=== PATIENT | male | born 1960 | race Two or more races ===

== ENCOUNTER 2016-06-09 09:02 | Inpatient (IN) ==
[2016-06-09] MEDS ORDERED: SODIUM CHLORIDE 0.9% 1,000 ML IV STA (09:14)
[2016-06-09 09:32] LABS: Basophils % 0.2 % (0.0-0.8); Eosinophils % 0.1 % (0.00-10.9); Hemoglobin 14.6 GM/DL (14.0-18.0); Immature Granulocytes % 0.8 %; Immature Granulocytes Absolute 0.15 #; Lymphocytes # 1.7 10*3/uL (1.4-4.0); Lymphocytes % 8.8 % (21.2-54.2); Mean Corpuscular Hemoglobin 30 PG (27-34); Mean Corpuscular Volume 89.4 FL (87-102); Mean Platelet Volume 10.1 FL (9.6-12.0); Monocytes % 15.2 % (1.7-12.7); Neutrophils # 14.6 10*3/uL (1.4-7.4); Neutrophils % 74.9 % (38.7-73.9); Platelet Count 237 T/CUMM (130-400); Red Blood Count 4.81 MC/CUMM (3.8-5.5); Red Cell Distribution Width 13.3 % (9.3-17.3); White Blood Count 19.5 T/CUMM (4-12)
[2016-06-09 09:36] LABS: Apearance,Urine Slightly Hazy (Clear); Bacteria,Urine Occasional /HPF (Few); Bilirubin,Urine Negative (Negative); Blood, Urine Negative (Negative); Glucose,Urine (UA) >=500 mg/dL (Negative); Hyaline Casts,Urine 4 /LPF (0-3); Ketones,Urine 5 mg/dL (Negative); Mucus,Urine Occasional /LPF (Occasional); Nitrite,Urine Negative (Negative); Protein,Urine 30 MG/DL; RBC,Urine 1 /HPF (0-4); Squamous Epithelial Cell,Urine Occasional /HPF (0-10); Urine Color Amber (Yellow); Urine Specific Gravity 1.024 (1.001-1.035); WBC,Urine 3 /HPF (0-6)
[2016-06-09] MEDS ORDERED: PIPERACILLIN/TAZOBACTAM 3,375 MG VIAL IV ONE (09:59)
[2016-06-09] MEDS ORDERED: PIPERACILLIN/TAZOBACTAM 3,375 MG in SODIUM CHLORIDE 0.9% 100 ML IV STA (09:59)
[2016-06-09] MEDS ORDERED: SODIUM CHLORIDE 0.9% 100 ML IV ONE (10:00)
[2016-06-09 10:10] LABS: Alanine Aminotransferase 58 U/L (16-61); Albumin 3.2 G/DL (3.4-5.0); Alkaline Phosphatase 79 U/L (45-117); Amylase 42 U/L (25-115); Aspartate Amino Transferase 25 U/L (0-37); Blood Urea Nitrogen 19 MG/DL (7-18); Calcium 8.9 MG/DL (8.5-10.1); Glucose 322 MG/DL (74-106); Magnesium 1.6 MG/DL (1.8-2.4); Potassium 3.8 MMOL/L (3.5-5.1); Sodium 136 MMOL/L (136-145); Total Protein 6.6 G/DL (6.4-8.3); Troponin I Only < 0.015 NG/ML (0.00-0.045)
[2016-06-09] MEDS ORDERED: INSULIN REGULAR 100 UNIT/ML SUBCUT STA (10:15)
[2016-06-09] MEDS ORDERED: INSULIN REGULAR 100 UNIT/ML ONE (10:20)
--- NOTE | 2016-06-09 10:22 | Ultrasound Report ---
Abdomen ultrasound complete. Indication: Upper abdominal pain. No previous study. The liver is enlarged with a length of 20.5 cm. There is fatty infiltration of the liver. No focal liver lesions. No intrahepatic biliary ductal dilatation. The common duct measures 4.6 mm. No gallstones are seen. There is borderline gallbladder wall thickening at 4.1 mm. There is a minimal amount of pericholecystic fluid. No pancreatic abnormality is seen. The spleen is normal in size. No ascites is present. The IVC is patent. The abdominal aorta is of normal caliber. The kidneys are normal in size, location, and contour. No hydronephrosis. There is a large cyst at the superior pole of the right kidney. It measures 9 x 12 cm. Impression: 1. Gallbladder wall thickening and minimal pericholecystic fluid. No gallstones are seen. Acalculous cholecystitis cannot be excluded. 2. Enlarged fatty liver. 3. Large right renal cyst The Ultrasound images were captured and stored. PROCEDURE INTERPRETED AT [facility] DEPARTMENT OF RADIOLOGY Final Report Signed by: Dr. Evelyn Queen
--- NOTE | 2016-06-09 10:22 | XRay Report ---
Two-view chest. Indication: Shortness of breath and dizziness. Upper abdominal pain. The heart is normal in size. The pulmonary vasculature is normal. The lung rosado are clear. Degenerative changes are noted at the shoulders. Impression: No acute abnormality. PROCEDURE INTERPRETED AT [facility] DEPARTMENT OF RADIOLOGY Final Report Signed by: Dr. Evelyn Queen
--- NOTE | 2016-06-09 10:23 | XRay Report ---
Two-view abdomen. Indication: Generalized abdominal pain. There is elevation of the right hemidiaphragm. There is enlargement of the liver. The bowel gas pattern is normal. No abnormal calcifications over the renal outlines. Degenerative changes of the spinal column and hips. Impression: Hepatomegaly. PROCEDURE INTERPRETED AT [facility] DEPARTMENT OF RADIOLOGY Final Report Signed by: Dr. Evelyn Queen
--- NOTE | 2016-06-09 10:26 | Emergency Department Note ---
Juan Manuel Dumont Brooke, am scribing for, and in the presence of, Nir Antonio MD 09:18. Marisela Dumont Phillip K, MD, personally performed the services described in this documentation, ascribed by Bree Zambrano in my presence, and it is both accurate and complete . 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 Denies Nausea, vomiting, or diarrhea. Mode of Arrival: Stretcher Limitations: No Limitations Source: Patient, RN Notes Reviewed Time Seen by Provider: 06/09/16 09:13 - History of Present Illness HPI Narrative: Patient is a 55 year old male who presents to the ED with c/o RUQ abdominal pain that started about four days ago. He denies the pain radiating around to his back. Patient says food makes the pain worse. He says he has not been able to eat much or sleep. He denies any nausea, vomiting, diarrhea, or fever. He says his bowel movements have been normal. He says he does still have his gallbladder. He is unsure of any FHx of gallstones. Patient has PMHx of IDDM, HTN, and [place] Palsy. Patient does not smoke but does drink alcohol on occasion. Onset (ago): day(s) (4) Allergies/Adverse Reactions: Allergies Allergy/AdvReac Type Severity Reaction Status Date / Time naproxen [From Naprosyn] Allergy RASH Verified 06/09/16 09:07 Sulfa (Sulfonamide Allergy Unknown/Unable Verified 06/09/16 09:07 Antibiotics) to obtain Home Medications: Home Medications Medication Instructions Recorded Confirmed Type Clopidogrel Bisulfate [Clopidogrel] 75 mg PO QPM 06/09/16 06/09/16 History Gabapentin Cap/Tab [Neurontin 300 mg PO BEDTIME 06/09/16 06/09/16 History Cap/Tab] Insulin Glargine,Hum.rec.anlog 50 units SUBCUT BEDTIME 06/09/16 06/09/16 History [Lantus SoloStar] Losartan/Hydrochlorothiazide 1 tablet PO QAM 06/09/16 06/09/16 History [Losartan-Hctz 100-25 mg Tab] Metformin HCl 1,000 mg PO BID 06/09/16 06/09/16 History Metoprolol Succinate 50 mg PO QAM 06/09/16 06/09/16 History Medical,Surgical,& Family Hx - Medical History Cardio: History of: Hypertension Endocrine: History of: Diabetes Mellitus (IDDM) - Social History Smoking Status: Never smoker Exam Vital Signs: Vital Signs Temperature 97.2 F L 06/09/16 09:14 Pulse Rate 97 H 06/09/16 09:47 Respiratory Rate 16 06/09/16 09:14 Blood Pressure 121/80 06/09/16 09:47 O2 Sat by Pulse Oximetry 98 06/09/16 09:47 - General General appearance: alert, in no apparent distress - Head Head exam: Present: atraumatic, normocephalic - Eye Eye exam: Present: normal appearance, PERRL, EOMI - ENT ENT exam: Present: normal exam - Neck Neck exam: Present: normal inspection - Chest Chest inspection: Present: normal inspection, symmetric chest wall rise - Respiratory Respiratory exam: Present: normal lung sounds bilaterally - Cardiovascular Cardiovascular exam: Present: normal rhythm, tachycardia, normal heart sounds - Abdominal Exam Abdominal exam: Present: soft, tenderness (tenderness to direct palpation to the RUQ), normal bowel sounds. Absent: distention - Extremities Exam Extremities exam: Present: pedal edema (trace bilaterally) - Back Exam Back exam: Present: normal inspection - Neurological Exam Neurological exam: Present: alert, oriented X3 - Psychiatric Psychiatric exam: Present: normal affect, normal mood - Skin Skin exam: Present: warm, dry, intact, normal color Results - Labs CBC & BMP: 06/09/16 09:23 06/09/16 09:23 Lab Results: I have reviewed the patients labs Labs: Laboratory Tests 06/09/16 09:23 WBC 19.5 H Neut % (Auto) 74.9 H Lymph % (Auto) 8.8 L [place] % (Auto) 15.2 H Neut # (Auto) 14.6 H [place] # (Auto) 3.0 H Laboratory Tests 06/09/16 09:23 Urine Urobilinogen 2.0 H Laboratory Tests 06/09/16 09:23 Chloride 96 L Anion Gap 15.8 H BUN 19 H Creatinine 1.40 H Glucose 322 H Magnesium 1.6 L Albumin 3.2 L Albumin/Globulin Ratio 0.9 L - Diagnostic Findings Procedure: Abdominal x-ray: report reviewed by me (Hepatomegaly.), Chest x-ray: report reviewed by me (No acute abnormality.), Ultrasound: report reviewed by me (US abdomen: 1. Gallbladder wall thickening and minimal pericholecystic fluid. No gallstones are seen. Acalculous cholecyststitis mcdonald be excluded. 2. Enlarged fatty liver. 3. Large right renal cyst.) Disposition Clinical Impression: Acalculous cholecystitis Case discussed with: patient Disposition: Still a Patient Additional Instructions: Admit to Dr. Iglesias
[2016-06-09] MEDS ORDERED: HYDROmorphone 2 MG/1 ML VIAL IV PRN (10:52)
[2016-06-09] MEDS ORDERED: GLUCAGON 1 MG VIAL IM PRN (12:07)
[2016-06-09] MEDS ORDERED: DEXTROSE 50% 25 GM/50 ML VIAL IV PRN (12:07)
[2016-06-09] MEDS: INSULIN LISPRO 100 UNIT/ML SUBCUT SCH ×3 (12:15→21:13)
--- NOTE | 2016-06-09 12:54 | General Surg History&Physical ---
Assessment and Plan (1) Acalculous cholecystitis Status: Acute Assessment and plan: Impression: Right upper quadrant abdominal pain Plan: Abdominal x-ray shows an enlarged liver. LFTs are normal. Ultrasound with mild gallbladder wall thickening but no gallstones. We'll check a HIDA scan. Current Visit: Yes History of Present Illness Chief complaint: abdominal pain History of present illness: Mr. Keane is a 55 year old male who presented to the emergency room with right upper quadrant abdominal pain. Patient states the pain has been present for the last 4 days. It's worse after eating. He denies previous episodes. The pain has continued to intensify. He's had no nausea vomiting or change in his bowel habits. 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 He denies any shortness of breath or chest pain. States he has no known cardiac or lung problems. States he has a cyst on his kidney. He denies any history of liver problems. Home Medications Medication Instructions Recorded Confirmed Type Clopidogrel Bisulfate [Clopidogrel] 75 mg PO QPM 06/09/16 06/09/16 History Gabapentin Cap/Tab [Neurontin 300 mg PO BEDTIME 06/09/16 06/09/16 History Cap/Tab] Insulin Glargine,Hum.rec.anlog 50 units SUBCUT BEDTIME 06/09/16 06/09/16 History [Lantus SoloStar] Losartan/Hydrochlorothiazide 1 tablet PO QAM 06/09/16 06/09/16 History [Losartan-Hctz 100-25 mg Tab] Metformin HCl 1,000 mg PO BID 06/09/16 06/09/16 History Metoprolol Succinate 50 mg PO QAM 06/09/16 06/09/16 History Allergies Allergy/AdvReac Type Severity Reaction Status Date / Time naproxen [From Naprosyn] Allergy RASH Verified 06/09/16 09:07 Sulfa (Sulfonamide Allergy Unknown/Unable Verified 06/09/16 09:07 Antibiotics) to obtain Medical,Surgical,& Family Hx - Medical History Cardio: History of: Hypertension Neurology: History of: Cerebral Palsy Endocrine: History of: Diabetes Mellitus (IDDM) (only takes lantus at night.) - Surgical History Cardiac Surgeries: Patient Denies: Cardiac Catheterization Thoracic Surgeries: Patient denies;: Organ Transplant, Lobectomy Neurologic Surgeries: Patient denies: Neurologic Surgery Abdominal Surgeries: Surgical HX of: Abdominal Surgery, Hernia Repair - Social History Smoking Status: Never smoker Frequency of Alcohol Use: Occasionally Type of Drug Use: None Exam - Constitutional Vitals: Period Temp Pulse Resp BP Sys/Hyman Pulse Ox Last 24 Hr 98.1 F 96-97 18-18 108-112/77-90 95-99 General appearance: no acute distress - Head Head exam: Present: normocephalic - Neck Neck exam: Present: normal inspection - Respiratory Respiratory exam: Present: clear to auscultation bilaterally - Cardiovascular Cardiovascular exam: Present: RRR - GI/Abdominal GI/Abdominal exam: Present: soft (very tender in the right upper quadrant. Also with mild to moderate tenderness in the left upper quadrant and epigastric area. No peritoneal signs.) - Back Exam Back exam: Present: normal inspection - Neurological Exam Neurological exam: Present: alert, oriented X3 Speech: Present: normal - Skin Skin exam: Present: normal color 12 point system: reviewed and no additional remarkable complaints except as stated Results - Labs CBC & BMP: 06/09/16 09:23 06/09/16 09:23 Lab Results: I have reviewed the past 24 hour labs - Diagnostic Findings Procedure: Ultrasound: report reviewed by me
--- NOTE | 2016-06-09 13:42 | EKG Report ---
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
--- NOTE | 2016-06-09 14:35 | Nuclear Medicine Report ---
HIDA scan. Indication: Right-sided abdominal pain. Gallbladder wall thickening and pericholecystic fluid on ultrasound, without stones. Following the intravenous administration of 5 mCi technetium 99m Choletec, hepatic excretion is prompt and uniform. Bowel activity can be seen by 10 minutes. Gallbladder activity did not occur, in the 2 hours of the exam. Impression: Findings as described above consistent with cystic duct obstruction and cholecystitis, in the appropriate clinical setting. PROCEDURE INTERPRETED AT [facility] DEPARTMENT OF RADIOLOGY Final Report Signed by: Dr. Evelyn Queen
--- NOTE | 2016-06-09 15:10 | Hospitalist History & Physical ---
History of Present Illness Chief complaint: Abdominal pain History of present illness: Mr. Keane is a 55-year-old [place] Citizen [place] male with history of diabetes, hypertension, Locke's palsy on Plavix Home Medications Medication Instructions Recorded Confirmed Type Clopidogrel Bisulfate [Clopidogrel] 75 mg PO QPM 06/09/16 06/09/16 History Gabapentin Cap/Tab [Neurontin 300 mg PO BEDTIME 06/09/16 06/09/16 History Cap/Tab] Insulin Glargine,Hum.rec.anlog 50 units SUBCUT BEDTIME 06/09/16 06/09/16 History [Lantus SoloStar] Losartan/Hydrochlorothiazide 1 tablet PO QAM 06/09/16 06/09/16 History [Losartan-Hctz 100-25 mg Tab] Metformin HCl 1,000 mg PO BID 06/09/16 06/09/16 History Metoprolol Succinate 50 mg PO QAM 06/09/16 06/09/16 History Allergies Allergy/AdvReac Type Severity Reaction Status Date / Time naproxen [From Naprosyn] Allergy RASH Verified 06/09/16 09:07 Sulfa (Sulfonamide Allergy Unknown/Unable Verified 06/09/16 09:07 Antibiotics) to obtain Medical,Surgical,& Family Hx - Medical History Cardio: History of: Hypertension Neurology: History of: Cerebral Palsy Endocrine: History of: Diabetes Mellitus (IDDM) (only takes lantus at night.) - Surgical History Cardiac Surgeries: Patient Denies: Cardiac Catheterization Thoracic Surgeries: Patient denies;: Organ Transplant, Lobectomy Neurologic Surgeries: Patient denies: Neurologic Surgery Abdominal Surgeries: Surgical HX of: Abdominal Surgery, Hernia Repair - Social History Smoking Status: Never smoker Frequency of Alcohol Use: Occasionally Type of Drug Use: None Exam - Constitutional Vitals: Period Temp Pulse Resp BP Sys/Hyman Pulse Ox Last 24 Hr 98.1 F 96-97 18-18 108-112/77-90 95-99 Results - Labs CBC & BMP: 06/09/16 14:48 06/09/16 09:23
[2016-06-09 15:15] LABS: INR 1.1; Partial Thromboplastin Time 28.5 SECS (0-40)
[2016-06-09] MEDS: LACTATED RINGERS 1,000 ML IV SCH ×2 (15:15→21:14)
[2016-06-09] MEDS: metroNIDAZOLE INJ 500 MG in PREMIX 1 EACH IV SCH ×2 (15:15→21:14)
--- NOTE | 2016-06-09 15:18 | Hospitalist Consult Note ---
Assessment and Plan - Time spent with patient Time spent with patient: Less than 30 minutes (1) Acalculous cholecystitis Status: Acute Assessment and plan: 55-year-old [place] male admitted with cholecystitis with cystic duct obstruction and normal LFTs. Patient can have clear liquid diet today and will be held n.p.o. after midnight tonight for possible laparoscopic cholecystectomy in a.m. by Dr. Orantes. History of Locke's palsy--patient is on Plavix for Locke's palsy. He has no signs of facial droop or weakness. His last dose was taken yesterday. Patient denies having a CVA. Will hold his Plavix and will decide if this even needs to be restarted. Dr. Orantes will decide in the morning if he can undergo surgery or wait until Friday. Hypertension-patient's blood pressures are under control on his current regimen. He takes Hyzaar and metoprolol. These have been restarted. Diabetes-patient's admission blood sugars were over 300. He also has renal glycosuria and ketonuria. Ordered a hemoglobin A1c to see what his average blood sugars have been running. Will have to stop his metformin for this hospital stay and put him on sliding scale insulin. Will continue to monitor his blood sugars especially while he is n.p.o. Neuropathy due to diabetes--patient is on Neurontin for his neuropathy. We will continue this home medicine. Leukocytosis--this is most likely due to his cystic duct obstruction. Patient has been started on Zosyn and Flagyl. Patient is afebrile. This is all been discussed with Dr. Bernardo. Further recommendations to follow. 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 Keane is a 55 year old [place] male with history of diabetes, hypertension, Locke's palsy on Plavix admitted by Dr. Orantes with abdominal pain. He was found to have an acute cholecystitis with common bile duct obstruction with normal LFTs. Hospitalist has been consulted for medical management. Patient states he has been having abdominal pain after eating for 3 -4 days. 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 The pain is not associated with nausea or vomiting. Patient denies headache, dysphasia, shortness of breath, chest pain, diarrhea, or lower extremity edema. Patient states he does take his medicines for hypertension and diabetes. He was placed on Plavix several years ago for Locke's palsy that happened bilaterally a year apart. He denies having a stroke. Patient's white count is elevated at 19.5 and creatinine is 1.4. He is afebrile vital signs stable. Blood sugars are greater than 300 along with renal glycosuria and ketonuria. Patient's abdomen is soft and tender to palpation throughout, upper quadrant greater than lower. CC: Conner Orantes MD - Home Medications and Allergies Home Medications: Home Medications Medication Instructions Recorded Confirmed Type Clopidogrel Bisulfate [Clopidogrel] 75 mg PO QPM 06/09/16 06/09/16 History Gabapentin Cap/Tab [Neurontin 300 mg PO BEDTIME 06/09/16 06/09/16 History Cap/Tab] Insulin Glargine,Hum.rec.anlog 50 units SUBCUT BEDTIME 06/09/16 06/09/16 History [Lantus SoloStar] Losartan/Hydrochlorothiazide 1 tablet PO QAM 06/09/16 06/09/16 History [Losartan-Hctz 100-25 mg Tab] Metformin HCl 1,000 mg PO BID 06/09/16 06/09/16 History Metoprolol Succinate 50 mg PO QAM 06/09/16 06/09/16 History Allergies/Adverse Reactions: Allergies Allergy/AdvReac Type Severity Reaction Status Date / Time naproxen [From Naprosyn] Allergy RASH Verified 06/09/16 09:07 Sulfa (Sulfonamide Allergy Unknown/Unable Verified 06/09/16 09:07 Antibiotics) to obtain Medical,Surgical,& Family Hx - Medical History Cardio: History of: Hypertension Neurology: No history of: Cerebral Palsy Endocrine: History of: Diabetes Mellitus (IDDM) (only takes lantus at night.) - Surgical History Cardiac Surgeries: Patient Denies: Cardiac Catheterization Thoracic Surgeries: Patient denies;: Organ Transplant, Lobectomy Neurologic Surgeries: Patient denies: Neurologic Surgery Abdominal Surgeries: Surgical HX of: Abdominal Surgery, Hernia Repair - Family History Family History: Reports;: Family Diabetes, Family Heart Disease - Social History Smoking Status: Never smoker Frequency of Alcohol Use: Occasionally Type of Drug Use: None Marital Status: Single Functional capacity: independent ambulation Review of systems: Complete 10 system review of systems was obtained and pertinent negatives and positives are in HPI Exam - Constitutional Vitals: Period Temp Pulse Resp BP Sys/Hyman Pulse Ox Last 24 Hr 98.1 F 96-97 18-18 108-112/77-90 95-99 Exam: 55-year-old [place] male, no acute distress, alert and oriented Chest clear bilaterally CV regular rate and rhythm Abdomen protuberant, soft, tender throughout, greater on right upper quadrant and epigastric Extremities with no edema Results - Labs CBC & BMP: 06/09/16 14:48 06/09/16 09:23 Lab Results: I have reviewed the past 24 hour labs Labs: Coags and hemoglobin A1c are pending - EKG EKG shows: tachycardia, sinus rhythm - Diagnostic Findings Procedure: Abdominal x-ray: report reviewed by me (Hepatomegaly), Chest x-ray: report reviewed by me (No acute abnormality), Ultrasound: report reviewed by me (Gallbladder wall thickening and minimal pericholecystic fluid. No gallstones, enlarged fatty liver, large right renal cyst)
[2016-06-09] MEDS: PIPERACILLIN/TAZOBACTAM 3,375 MG in SODIUM CHLORIDE 0.9% 100 ML IV SCH ×2 (16:36→21:15)
[2016-06-09] MEDS ORDERED: INSULIN GLARGINE 100 UNIT/ML SUBCUT SCH (21:00)
[2016-06-09] MEDS: INSULIN GLARGINE 100 UNIT/ML SUBCUT SCH (21:12)
[2016-06-09] MEDS: GABAPENTIN 300 MG CAPSULE PO SCH (21:12)
[2016-06-10 04:16] LABS: Basophils % 0.2 % (0.0-0.8); Eosinophils # 0.1 10*3/uL (0.0-0.87); Eosinophils % 0.4 % (0.00-10.9); Hematocrit 39.2 VOL% (42.0-52.0); Hemoglobin 13.3 GM/DL (14.0-18.0); Immature Granulocytes % 0.9 %; Immature Granulocytes Absolute 0.17 #; Lymphocytes # 1.9 10*3/uL (1.4-4.0); Lymphocytes % 10.2 % (21.2-54.2); Mean Corpuscular HGB Conc 33.9 GM/DL (32-36); Mean Corpuscular Hemoglobin 30 PG (27-34); Mean Corpuscular Volume 89.7 FL (87-102); Mean Platelet Volume 10.8 FL (9.6-12.0); Monocytes # 2.7 10*3/uL (0.11-0.8); Monocytes % 14.2 % (1.7-12.7); Neutrophils # 13.9 10*3/uL (1.4-7.4); Neutrophils % 74.1 % (38.7-73.9); Platelet Count 195 T/CUMM (130-400); Red Blood Count 4.37 MC/CUMM (3.8-5.5); Red Cell Distribution Width 13.6 % (9.3-17.3); White Blood Count 18.7 T/CUMM (4-12)
[2016-06-10] MEDS: LACTATED RINGERS 1,000 ML IV SCH ×2 (04:16→14:21)
[2016-06-10 04:50] LABS: Lymphocytes 12 % (20-55); Platelet Estimate Adequate; Segmented Neutrophils 80 % (50-85); Total Cells Counted 100
[2016-06-10] MEDS: metroNIDAZOLE INJ 500 MG in PREMIX 1 EACH IV SCH ×3 (05:28→20:56)
[2016-06-10] MEDS: PIPERACILLIN/TAZOBACTAM 3,375 MG in SODIUM CHLORIDE 0.9% 100 ML IV SCH ×2 (05:29→16:05)
--- NOTE | 2016-06-10 07:38 | General Surgery Progress Note ---
Assessment and Plan (1) Acalculous cholecystitis Status: Acute Assessment and plan: Impression: Acute cholecystitis Plan: HIDA scan reviewed. Cystic duct obstructed. This is all consistent with acute cholecystitis. I discussed options with the patient. He remains in early significant pain and quite a bit of tenderness. I discussed the possibility of cholecystectomy, percutaneous cholecystostomy tube, treatment with antibiotics. Treatment with antibiotics alone and has high risk of failure due to the obstruction. He is at risk of bleeding because of the Plavix. This is been discussed with him. He wants to proceed with cholecystectomy. I feel like he would be at an increased risk of bleeding with percutaneous cholecystostomy tube since is typically performed going through the liver. The risk of surgery including bleeding, infection, damage to surrounding structures, need for further surgery, injury to the biliary tree were all discussed in detail and he wants to proceed. We'll plan to proceed today. Current Visit: Yes Subjective Patient reports: Present: feels better, still having pain Exam - Constitutional Vitals: Period Temp Pulse Resp BP Sys/Hyman Pulse Ox Last 24 Hr 97.6 F-102.8 F 96-121 16-20 95-127/61-90 90-99 General appearance: no acute distress - Head Head exam: Present: normocephalic - Neck Neck exam: Present: normal inspection - Respiratory Respiratory exam: Present: clear to auscultation bilaterally - Cardiovascular Cardiovascular exam: Present: RRR - GI/Abdominal GI/Abdominal exam: Present: soft (still very tender to palpation in the right upper quadrant.) - Neurological Exam Neurological exam: Present: alert, oriented X3 Speech: Present: normal - Skin Skin exam: Present: normal color Results - Labs CBC & BMP: 06/10/16 03:10 06/09/16 09:23 Lab Results: I have reviewed the past 24 hour labs
[2016-06-10] MEDS: METOPROLOL SUCCINATE XL 50 MG TABLET PO SCH (09:00)
[2016-06-10] MEDS: PANTOPRAZOLE 40 MG TABLET PO SCH (09:00)
[2016-06-10] MEDS: LOSARTAN/HCTZ 50-12.5 MG TABLET PO SCH (09:00)
[2016-06-10] MEDS: INSULIN LISPRO 100 UNIT/ML SUBCUT SCH ×4 (09:08→20:57)
[2016-06-10] MEDS ORDERED: TISSUE ADHESIVE 1 EACH APPLICATOR TOP ONE (10:39)
[2016-06-10] MEDS ORDERED: LIDOCAINE 2%/EPI 20 ML VIAL ONE (10:39)
[2016-06-10] MEDS ORDERED: BUPIVACAINE MPF 0.25% /EPI 30 ML VIAL ONE (10:39)
[2016-06-10] MEDS ORDERED: ACETAMINOPHEN 500 MG TABLET PO ONE (10:39)
[2016-06-10] MEDS ORDERED: NEOSTIGMINE 10 MG/10 ML VIAL ONE ×2 (11:19→13:19)
[2016-06-10] MEDS ORDERED: LIDOCAINE 2% 5 ML VIAL ONE (11:19)
[2016-06-10] MEDS ORDERED: ETOMIDATE 20 MG/10 ML VIAL IV ONE ×2 (11:19→13:20)
[2016-06-10] MEDS ORDERED: ONDANSETRON 4 MG/2 ML VIAL ONE ×2 (11:19→13:19)
[2016-06-10] MEDS ORDERED: GLYCOPYRROLATE 0.4 MG/2 ML VIAL ONE ×2 (11:19→13:19)
--- NOTE | 2016-06-10 11:21 | Hospitalist Progress Note ---
Assessment and Plan (1) Acalculous cholecystitis Status: Acute Current Visit: Yes (2) Hypertension Status: Acute Current Visit: Yes (3) Diabetes Status: Acute Current Visit: Yes (4) Neuropathy due to secondary diabetes Status: Acute Current Visit: Yes (5) History of Locke's palsy Status: Acute Current Visit: Yes (6) Leukocytosis Status: Acute Current Visit: Yes Hospitalist: Subjective Interval history: No acute events overnight. Abdominal pain is much improved. FSG is better today. Plan is for surgery. Exam - Constitutional Vitals: Period Temp Pulse Resp BP Sys/Hyman Pulse Ox Last 24 Hr 97.6 F-102.8 F 96-121 16-20 95-127/61-90 90-99 General appearance: over weight - Head Head exam: Present: normocephalic, atraumatic - Eye Eye exam: Present: EOMI Pupils: Present: PRASAD - ENT ENT exam: Present: normal exam - Neck Neck exam: Present: normal inspection. Absent: tenderness - Respiratory Respiratory exam: Present: clear to auscultation bilaterally. Absent: wheezes - Cardiovascular Cardiovascular exam: Present: regular rate and rhythm - GI/Abdominal GI/Abdominal exam: Present: normal bowel sounds, soft. Absent: tenderness - Extremities Exam Extremities exam: Present: normal inspection - Back Exam Back exam: Present: normal inspection - Neurological Exam Neurological exam: Present: alert, oriented X3 - Psychiatric Psychiatric exam: Present: normal affect, normal mood - Skin Skin exam: Present: warm, intact Results - Labs CBC & BMP: 06/10/16 03:10 06/09/16 09:23
[2016-06-10] MEDS ORDERED: MIDAZOLAM 2 MG/2 ML VIAL ONE (13:18)
[2016-06-10] MEDS ORDERED: PROPOFOL 200 MG/20 ML VIAL IV ONE (13:19)
[2016-06-10] MEDS ORDERED: SEVOFLURANE 1 UNIT/15 MINUTE INH ONE (13:19)
[2016-06-10] MEDS ORDERED: ROCURONIUM 100 MG/10 ML VIAL IV ONE (13:20)
--- NOTE | 2016-06-10 13:38 | Fluoroscopy Report ---
FL cholangiogram in surgery Indication: Status post cholecystectomy. Intraoperative cholangiogram: Fluoroscopy time 25 seconds. 46 images obtained. Contrast injection cystic duct remnant shows no persistent filling defects in the biliary collecting system, with a small bubble changing position rapidly in the common hepatic duct. Prompt spillage of contrast into the duodenum noted. No dilation or strictures shown. Impression: No retained stones identified. Small bubble in the common hepatic duct. PROCEDURE INTERPRETED AT [facility] DEPARTMENT OF RADIOLOGY Final Report Signed by: Ayo Krueger M.D.
--- NOTE | 2016-06-10 13:43 | Anesthesia ---
Anesthesia Post OP - Post Ansesthetic Evaluation Patient seen in post op: Yes Resp: within normal limits CV: within normal limits Mental: within normal limits Temp: within normal limits [id number]: within normal limits Nausea and Vomiting: within normal limits Pain: within normal limits
--- NOTE | 2016-06-10 13:55 | Operative Note ---
Date of procedure: 06/10/16 Pre-op diagnosis: acute cholecystitis Post-op diagnosis: same Procedure: Procedure performed: Laparoscopic cholecystectomy with intraoperative cholangiogram #2 supervision and interpretation of fluoroscopy Procedure in detail: After informed consent was obtained, the patient was taken operating suite and laid supine on the operating table. After general anesthesia was induced the abdomen was prepped and draped in usual sterile fashion. After procedural pause local anesthetic and straighten the skin and subcutaneous tissue just above the umbilicus. Incision was made and dissection carried down through skin and soft tissue. The fascia identified and grasped with Zackery's and elevated. Fascial incision was made. Abdominal cavity was entered bluntly. Finger sweep revealed no adhesions. Hughes trocar placed under direct visualization. Pneumoperitoneum achieved. Camera inserted. Bowel mesentery inspected and found be free of any violation. Patient was placed in reverse Trendelenburg position and rotated to the left. 25 mm trochars placed in the right upper quadrant. 11 mm subxiphoid trocar was placed under visualization. The gallbladder identified. There appeared to be acutely inflamed. The overall appearance was somewhat ischemic with areas of wall necrosis. The gallbladder was grasped and retracted superiorly. Infundibulum of the gallbladder retracted toward the right hip. Dissection carried out from lateral to medial approach and the triangle of [place]. Cystic duct and cystic artery were identified and isolated. Using a critical view technique these on 2 structures entering the gallbladder. A clip was placed the junction of the cystic duct and neck of the gallbladder and partial transection made on the cystic duct. Clinda catheter inserted and secured in place. Intraoperative glandular and performed. No stones were identified. The contrast was seen entering small bowel. The cholangiocatheter was removed and 2 clips placed on the cystic duct just distal to the partial transection the transection completed. Cystic artery was triple clipped and transected along the gallbladder wall. Gallbladder was then removed from the gallbladder fossa using hook cautery and placed in an Endo Catch sac and removed through the Hughes trocar site. Pneumoperitoneum reachieved right upper quadrant thoroughly irrigated and suctioned. There was overall good hemostasis. Spot electrocautery was used on several small areas of gallbladder fossa. Since the patient was on Plavix Tisseel was sprayed all along the gallbladder fossa and near the portal structures. A 10 Faroese Car drain was then placed in the gallbladder fossa and brought out through the lateral trocar site. It was secured in place with 3-0 nylon. The remaining trochars were removed as the abdomen desufflated. Fascia at the Hughes trocar site closed using 0 Vicryl [id number] interrupted suture. Wounds were irrigated and suction skin closed with margarita sterile dressings applied and the patient was explained taken recovery room in stable condition. All lap and needle counts correct at the end of the case. Anesthesia: BRANA Surgeon / Physician: Cnoner Orantes Estimated blood loss: other (less than 10 mL) Specimens: other (gallbladder) Condition: stable Disposition: PACU Results - Labs CBC & BMP: 06/10/16 03:10 06/09/16 09:23 Discharge Plan - Discharge Medications No Action Gabapentin Cap/Tab [Neurontin Cap/Tab] 300 mg PO BEDTIME Metoprolol Succinate 50 mg PO QAM Metformin HCl 1,000 mg PO BID Insulin Glargine,Hum.rec.anlog [Lantus SoloStar] 50 units SUBCUT BEDTIME Clopidogrel Bisulfate [Clopidogrel] 75 mg PO QPM Losartan/Hydrochlorothiazide [Losartan-Hctz 100-25 mg Tab] 1 tablet PO QAM - Follow Up or Referral - Forms/Instructions
[2016-06-10] MEDS: HYDROmorphone 2 MG/1 ML VIAL IV PRN (20:49)
[2016-06-10] MEDS: INSULIN GLARGINE 100 UNIT/ML SUBCUT SCH (20:51)
[2016-06-10] MEDS: GABAPENTIN 300 MG CAPSULE PO SCH (20:51)
[2016-06-11] MEDS: PIPERACILLIN/TAZOBACTAM 3,375 MG in SODIUM CHLORIDE 0.9% 100 ML IV SCH ×4 (00:03→22:47)
[2016-06-11 04:12] LABS: Basophils % 0.2 % (0.0-0.8); Eosinophils # 0.1 10*3/uL (0.0-0.87); Eosinophils % 0.6 % (0.00-10.9); Hematocrit 38.4 VOL% (42.0-52.0); Hemoglobin 12.8 GM/DL (14.0-18.0); Immature Granulocytes % 0.7 %; Immature Granulocytes Absolute 0.09 #; Lymphocytes # 1.5 10*3/uL (1.4-4.0); Lymphocytes % 12.5 % (21.2-54.2); Mean Corpuscular HGB Conc 33.3 GM/DL (32-36); Mean Corpuscular Hemoglobin 30 PG (27-34); Mean Corpuscular Volume 90.4 FL (87-102); Mean Platelet Volume 11.1 FL (9.6-12.0); Monocytes # 1.6 10*3/uL (0.11-0.8); Monocytes % 13.2 % (1.7-12.7); Neutrophils # 8.8 10*3/uL (1.4-7.4); Neutrophils % 72.8 % (38.7-73.9); Platelet Count 174 T/CUMM (130-400); Red Blood Count 4.25 MC/CUMM (3.8-5.5); Red Cell Distribution Width 14.1 % (9.3-17.3); White Blood Count 12.1 T/CUMM (4-12)
[2016-06-11] MEDS: metroNIDAZOLE INJ 500 MG in PREMIX 1 EACH IV SCH ×3 (04:35→21:16)
[2016-06-11 04:40] LABS: Calcium 8.1 MG/DL (8.5-10.1); Magnesium 1.7 MG/DL (1.8-2.4); Osmolality,Calculated 278.8 MOS/KG (273-304); Potassium 3.5 MMOL/L (3.5-5.1)
[2016-06-11 04:55] LABS: Band Neutrophils 1 % (0-10); Lymphocytes 14 % (20-55); Platelet Estimate Normal; Segmented Neutrophils 69 % (50-85); Total Cells Counted 100
[2016-06-11 04:56] LABS: Hypochromasia Slight
[2016-06-11] MEDS: INSULIN LISPRO 100 UNIT/ML SUBCUT SCH ×4 (08:21→21:32)
[2016-06-11] MEDS: LACTATED RINGERS 1,000 ML IV SCH ×4 (08:23→18:49)
[2016-06-11] MEDS: HYDROmorphone 2 MG/1 ML VIAL IV PRN ×3 (08:25→21:17)
[2016-06-11] MEDS: LOSARTAN/HCTZ 50-12.5 MG TABLET PO SCH (08:28)
[2016-06-11] MEDS: METOPROLOL SUCCINATE XL 50 MG TABLET PO SCH (08:28)
[2016-06-11] MEDS: PANTOPRAZOLE 40 MG TABLET PO SCH (08:28)
--- NOTE | 2016-06-11 08:37 | Event Note ---
Afebrile vital signs stable. Patient has fairly sluggish. He complains of continued pain. He is not getting up out of bed. He feels like food gets stuck when he eats it. His abdomen is soft and appropriately tender. Incisions look good. PANKAJ drain with minimal serous output. Will continue pain control. Encouraged ambulation. He needs to be out of bed to chair. Continue diet. Looks like he needs another day and may be be ready to go home tomorrow.
--- NOTE | 2016-06-11 11:54 | Pathology Report from [facility] ---
ACCESSION # : [id number] PATIENT NAME : Sy Ryan ORDERING DR : Conner Orantes MD CLINICAL HX: Acute cholecystitis POST-OP DX: Same SPECIMEN INFO: Gallbladder GROSS DESCRIPTION: The specimen is received in formalin labeled with the patient 's name and consists of an intact gallbladder measuring 10.5 x 5.2 cm. The serosa is smooth and erythematous. The wall averages up to 0.5 cm in thickness. The mucosal surface is velvety and red-thorne. The lumen contains hemorrhagic bile with a few tiny black stones noted measuring up to 0.3 cm. Fiscal Technician sections submitted in one cassette. DIAGNOSIS FOR SY RYAN: GALLBLADDER, CHOLECYSTECTOMY: Acute and chronic cholecystitis; cholelithiasis. SERVICE DATE: 06/10/2016 REPORT DATE: 06/11/2016 PATHOLOGIST: Bj Bass
--- NOTE | 2016-06-11 14:18 | Hospitalist Progress Note ---
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 Reiterated the importance of movement with him. FSG are slightly elevated, will increase his Lantus to 35 units. Possible discharge tomorrow, will need to continue home medications as prescribed at that time. Exam - Constitutional Vitals: Period Temp Pulse Resp BP Sys/Hyman Pulse Ox Last 24 Hr 98.1 F-98.7 F 92-112 17-20 95-137/52-95 91-95 General appearance: over weight - Head Head exam: Present: normocephalic, atraumatic - Eye Eye exam: Present: EOMI Pupils: Present: PRASAD - ENT ENT exam: Present: normal exam - Neck Neck exam: Present: normal inspection. Absent: tenderness - Respiratory Respiratory exam: Present: clear to auscultation bilaterally. Absent: rales, wheezes - Cardiovascular Cardiovascular exam: Present: regular rate and rhythm - GI/Abdominal GI/Abdominal exam: Present: normal bowel sounds, soft. Absent: tenderness, rebound - Extremities Exam Extremities exam: Present: normal inspection - Back Exam Back exam: Present: normal inspection - Neurological Exam Neurological exam: Present: alert, oriented X3 - Psychiatric Psychiatric exam: Present: normal affect, normal mood - Skin Skin exam: Present: warm, intact Results - Labs CBC & BMP: 06/11/16 02:31 06/11/16 02:31 Specialty Discharge - Follow Up or Referrals Follow up with: Conner Orantes MD [Physician] -
[2016-06-11] MEDS: ONDANSETRON 4 MG/2 ML VIAL IV PRN ×2 (15:15→22:48)
[2016-06-11] MEDS: GABAPENTIN 300 MG CAPSULE PO SCH ×2 (21:16→22:39)
[2016-06-11] MEDS: INSULIN GLARGINE 100 UNIT/ML SUBCUT SCH (21:32)
[2016-06-12] MEDS: HYDROmorphone 2 MG/1 ML VIAL IV PRN ×3 (04:02→20:57)
[2016-06-12] MEDS: LACTATED RINGERS 1,000 ML IV SCH ×2 (05:28→17:27)
[2016-06-12] MEDS: metroNIDAZOLE INJ 500 MG in PREMIX 1 EACH IV SCH ×3 (05:28→20:57)
[2016-06-12 06:07] LABS: Hematocrit 38.4 VOL% (42.0-52.0); Hemoglobin 12.7 GM/DL (14.0-18.0)
[2016-06-12] MEDS: PIPERACILLIN/TAZOBACTAM 3,375 MG in SODIUM CHLORIDE 0.9% 100 ML IV SCH ×3 (07:11→23:24)
[2016-06-12] MEDS: ONDANSETRON 4 MG/2 ML VIAL IV PRN ×2 (07:20→17:50)
--- NOTE | 2016-06-12 08:47 | Event Note ---
Afebrile vital signs stable. Patient complains of food getting stuck as he swallows it and then he throws it back up. He's also saying he is nauseated and has vomited but according to the chart is only vomited about 30 mL in am not sure if this just from dysphagia and then refluxing that back up. Says he doesn't feel well. On exam his abdomen is soft he's protuberant but I think he might be a little bit distended. His PANKAJ drain has minimal output. It is serous. His abdomen is appropriately tender. Few bowel sounds are heard. H&H is stable We'll make him nothing by mouth. Continue IV fluids. I'll check an abdominal x -ray to see if he has an ileus. We'll also consult gastroenterology for his dysphagia. Continue to hold his Plavix for now.
--- NOTE | 2016-06-12 09:30 | XRay Report ---
XR abdomen 2V Indication: Nausea and vomiting Comparison: Abdominal x-ray dated June 09, 2016 Technique: Frontal views of the abdomen in the supine and upright position. Findings: Nonspecific nonobstructive bowel gas pattern. No free intraperitoneal air demonstrated. Surgical drain and clips overlie the right upper quadrant. Osseous structures appear grossly unchanged. IMPRESSION: No acute abnormality demonstrated. PROCEDURE INTERPRETED AT [facility] DEPARTMENT OF RADIOLOGY Final Report Signed by: Dr Akbar Jefferson
--- NOTE | 2016-06-12 10:52 | Gastrointestinal Consult Note ---
<Kristi Valencia - Last Filed: 06/12/16 10:45> Assessment and Plan (1) Dysphagia Status: Acute Assessment and plan: 06/12-new onset dysphagia with regurgitation/nausea and vomiting following ingestion of solids are liquids. No prior history of problems prior to this admission. Abdominal x-ray with no acute findings. Status post laparoscopic cholecystectomy day 2. Plavix continues to be held. Plan an addendum to follow by Dr. Fregoso. Current Visit: Yes History of Present Illness Chief complaint: Nausea, vomiting, dysphagia History of present illness: Mr. Keane is a 55 year old male who presented to the hospital 3 days ago with right upper quadrant abdominal pain . He has a history of hypertension, diabetes, and at admission was on Plavix for Locke's palsy per patient. Patient speaks some Wolof but difficult to communicate at times. Information also obtained from chart review. He was found on admission to have normal LFTs however ultrasound showed mild gallbladder wall thickening without stones. HIDA scan showed findings consistent with cystic duct obstruction and cholecystitis. Patient underwent a laparoscopic cholecystectomy and intraoperative cholangiogram which showed no retained stones on 06/10. The day following surgery patient began to complain of the sensation of food sticking in his throat when he eats. This continued all day on yesterday however today he started complaining of every time he swallows he will regurgitate or vomit. Patient became very nauseated on yesterday and this was continued throughout the night and this morning. States he cannot even drink juice or water without vomiting. Denies any prior history with dysphagia in the past. Denies coffee- ground emesis are hematemesis. States he is passing minimal flatus at this time. Denies history of GERD. Denies GI complaints prior to onset of abdominal pain that was associated with his gallbladder. Abdominal x-ray this morning showed no acute abnormality. Patient has never had endoscopy. Home Medications Medication Instructions Recorded Confirmed Type Clopidogrel Bisulfate [Clopidogrel] 75 mg PO QPM 06/09/16 06/09/16 History Gabapentin Cap/Tab [Neurontin 300 mg PO BEDTIME 06/09/16 06/09/16 History Cap/Tab] Insulin Glargine,Hum.rec.anlog 50 units SUBCUT BEDTIME 06/09/16 06/09/16 History [Lantus SoloStar] Losartan/Hydrochlorothiazide 1 tablet PO QAM 06/09/16 06/09/16 History [Losartan-Hctz 100-25 mg Tab] Metformin HCl 1,000 mg PO BID 06/09/16 06/09/16 History Metoprolol Succinate 50 mg PO QAM 06/09/16 06/09/16 History Allergies Allergy/AdvReac Type Severity Reaction Status Date / Time naproxen [From Naprosyn] Allergy RASH Verified 06/09/16 09:07 Sulfa (Sulfonamide Allergy Unknown/Unable Verified 06/09/16 09:07 Antibiotics) to obtain Medical,Surgical,& Family Hx - Medical History Cardio: History of: Hypertension Neurology: No history of: Cerebral Palsy Endocrine: History of: Diabetes Mellitus (IDDM) (only takes lantus at night.) - Surgical History Cardiac Surgeries: Patient Denies: Cardiac Catheterization Thoracic Surgeries: Patient denies;: Organ Transplant, Lobectomy Neurologic Surgeries: Patient denies: Neurologic Surgery Abdominal Surgeries: Surgical HX of: Abdominal Surgery, Hernia Repair - Family History Family History: Reports;: Family Diabetes, Family Heart Disease - Social History Smoking Status: Never smoker Frequency of Alcohol Use: Occasionally Type of Drug Use: None 12 point system: reviewed and no additional remarkable complaints except as stated - Constitutional Constitutional: Present: as per HPI - EENT Eyes: Present: as per HPI Ears: Present: as per HPI Nose, mouth and throat: Present: as per HPI, dysphagia - Cardiovascular Cardiovascular: Present: as per HPI - Respiratory Respiratory: Present: as per HPI - Gastrointestinal Gastrointestinal: Present: as per HPI, abdominal pain, dysphagia, nausea, vomiting - Genitourinary Genitourinary: Present: as per HPI - Musculoskeletal Musculoskeletal: Present: as per HPI - Neurological Neurological: Present: as per HPI - Psychiatric Psychiatric: Present: as per HPI - Endocrine Endocrine: Present: as per HPI - Hematologic/Lymphatic Hematologic/Lymphatic: Present: as per HPI Exam - Constitutional Vitals: Period Temp Pulse Resp BP Sys/Hyman Pulse Ox Last 24 Hr 96.8 F-98.5 F 80-98 18-20 112-136/72-87 90-96 General appearance: normal weight, no acute distress - Head Head exam: Present: normal inspection, normocephalic - Eye Eye exam: Present: other (Lids and conjunctivae unremarkable). Absent: scleral icterus - ENT ENT exam: Present: normal exam, normal oropharynx - Neck Neck exam: Present: normal inspection - Respiratory Respiratory exam: Present: clear to auscultation bilaterally. Absent: rales, rhonchi, wheezes - Cardiovascular Cardiovascular exam: Present: regular rate and rhythm. Absent: diastolic murmur , JVD, systolic murmur - GI/Abdominal GI/Abdominal exam: Present: hypoactive bowel sounds, tenderness, soft. Absent: ascites, distended, mass, organomegaly - Extremities Exam Extremities exam: Present: normal inspection, full ROM - Back Exam Back exam: Present: normal inspection - Neurological Exam Neurological exam: Present: alert, oriented X3 - Psychiatric Psychiatric exam: Present: normal affect, normal mood - Skin Skin exam: Present: normal color, warm, dry Results - Labs CBC & BMP: 06/12/16 04:40 06/11/16 02:31 Lab Results: I have reviewed the past 24 hour labs - Diagnostic Findings Procedure: Abdominal x-ray: report reviewed by me Specialty Discharge - Follow Up or Referrals Follow up with: Conner Orantes MD [Physician] - <Emerson Fregoso - Last Filed: 06/12/16 18:43> History of Present Illness History of present illness: Mr. Keane is a 55 year old male Exam - Constitutional Vitals: Period Temp Pulse Resp BP Sys/Hyman Pulse Ox Last 24 Hr 97.4 F-98.5 F 52-91 16-20 120-136/80-90 91-96 Results - Labs CBC & BMP: 06/12/16 04:40 06/11/16 02:31
[2016-06-12] MEDS ORDERED: PROPOFOL 500 MG/50 ML BOTTLE IV ONE (11:12)
[2016-06-12] MEDS ORDERED: LIDOCAINE 2% 5 ML VIAL ONE (11:12)
[2016-06-12] MEDS: INSULIN LISPRO 100 UNIT/ML SUBCUT SCH ×4 (11:13→22:15)
[2016-06-12] MEDS: PANTOPRAZOLE 40 MG TABLET PO SCH (11:14)
[2016-06-12] MEDS: LOSARTAN/HCTZ 50-12.5 MG TABLET PO SCH (11:14)
[2016-06-12] MEDS: METOPROLOL SUCCINATE XL 50 MG TABLET PO SCH (11:14)
--- NOTE | 2016-06-12 16:01 | Hospitalist Progress Note ---
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 But still complaining of difficulty swallowing. GI has been consulted. Lantus increased yesterday. Exam - Constitutional Vitals: Period Temp Pulse Resp BP Sys/Hyman Pulse Ox Last 24 Hr 96.8 F-98.5 F 52-91 16-20 112-136/75-90 90-96 General appearance: over weight - Head Head exam: Present: normocephalic, atraumatic - Eye Eye exam: Present: EOMI Pupils: Present: PRASAD - ENT ENT exam: Present: normal exam - Neck Neck exam: Present: normal inspection - Respiratory Respiratory exam: Present: clear to auscultation bilaterally. Absent: rhonchi, wheezes - Cardiovascular Cardiovascular exam: Present: regular rate and rhythm - GI/Abdominal GI/Abdominal exam: Present: normal bowel sounds, tenderness, soft. Absent: rebound - Extremities Exam Extremities exam: Present: normal inspection - Back Exam Back exam: Present: normal inspection - Neurological Exam Neurological exam: Present: alert, oriented X3 - Psychiatric Psychiatric exam: Present: normal affect, normal mood - Skin Skin exam: Present: warm, intact Results - Labs CBC & BMP: 06/12/16 04:40 06/11/16 02:31 Specialty Discharge - Follow Up or Referrals Follow up with: Conner Orantes MD [Physician] -
[2016-06-12] MEDS: GABAPENTIN 300 MG CAPSULE PO SCH (20:57)
[2016-06-12] MEDS: INSULIN GLARGINE 100 UNIT/ML SUBCUT SCH (20:58)
[2016-06-13] MEDS: ONDANSETRON 4 MG/2 ML VIAL IV PRN ×3 (04:26→21:13)
[2016-06-13] MEDS: HYDROmorphone 2 MG/1 ML VIAL IV PRN ×4 (04:26→20:58)
[2016-06-13] MEDS: metroNIDAZOLE INJ 500 MG in PREMIX 1 EACH IV SCH ×3 (04:30→21:49)
[2016-06-13] MEDS: LACTATED RINGERS 1,000 ML IV SCH ×4 (05:16→21:59)
[2016-06-13 05:30] LABS: Basophils % 0.3 % (0.0-0.8); Eosinophils # 0.3 10*3/uL (0.0-0.87); Eosinophils % 2.5 % (0.00-10.9); Hematocrit 38.6 VOL% (42.0-52.0); Immature Granulocytes % 0.6 %; Immature Granulocytes Absolute 0.07 #; Lymphocytes # 2.6 10*3/uL (1.4-4.0); Lymphocytes % 22.3 % (21.2-54.2); Mean Corpuscular HGB Conc 33.7 GM/DL (32-36); Mean Corpuscular Hemoglobin 30 PG (27-34); Mean Corpuscular Volume 88.1 FL (87-102); Mean Platelet Volume 10.5 FL (9.6-12.0); Monocytes # 1.5 10*3/uL (0.11-0.8); Monocytes % 12.5 % (1.7-12.7); Neutrophils # 7.2 10*3/uL (1.4-7.4); Neutrophils % 61.8 % (38.7-73.9); Platelet Count 257 T/CUMM (130-400); Red Blood Count 4.38 MC/CUMM (3.8-5.5); Red Cell Distribution Width 14.3 % (9.3-17.3); White Blood Count 11.7 T/CUMM (4-12)
[2016-06-13 06:06] LABS: Calcium 8.4 MG/DL (8.5-10.1); Osmolality,Calculated 280.4 MOS/KG (273-304); Potassium 3.6 MMOL/L (3.5-5.1)
[2016-06-13] MEDS: PIPERACILLIN/TAZOBACTAM 3,375 MG in SODIUM CHLORIDE 0.9% 100 ML IV SCH ×3 (06:29→23:13)
[2016-06-13] MEDS: INSULIN LISPRO 100 UNIT/ML SUBCUT SCH ×4 (10:04→20:58)
[2016-06-13] MEDS: LOSARTAN/HCTZ 50-12.5 MG TABLET PO SCH (10:05)
[2016-06-13] MEDS: PANTOPRAZOLE 40 MG TABLET PO SCH (10:05)
[2016-06-13] MEDS: METOPROLOL SUCCINATE XL 50 MG TABLET PO SCH (10:05)
--- NOTE | 2016-06-13 11:25 | History and Physical Update ---
History and Physical Update - Physical Exam Mental Status: alert and oriented Heart: regular rate and rhythm Lung: clear to auscultation Abdomen: within normal limits Vitals: within normal limits
--- NOTE | 2016-06-13 11:28 | Operative Note ---
Date of procedure: 06/13/16 Pre-op diagnosis: Dysphagia Procedure: EGD with esophageal dilatation 55-year-old gentleman with cholecystectomy now complicated by persistent reflux nausea and dysphagia. He denies prior history of similar symptoms. He is now for EGD to further evaluate. Informed symptoms obtained the patient He was sedated with MAC anesthesia per anesthesia protocol. Patient placed in left lateral decubitus position the Olympus flexible video upper endoscope was inserted into the oral cavity under direct vision the esophagus was intubated. Findings: Esophagus-normal proximal mucosa. There are some areas of exudate suggestive of possible Maria Eugenia. In the distal esophagus a mild esophageal stricture and esophagitis was identified. No Carlos's no varices were identified. There is a moderate hiatal hernia. Stomach-normal insufflation normal mucosa to direct and retroflexed views of the body, fundus, cardia and antrum the stomach. Pylorus-normal Duodenum-normal for the bulb and duodenum to the third portion of the duodenum. The procedure was terminated the scope was withdrawn. Subsequently a 54 [place]ian bougie was passed with no resistance instilled fluid present on the dilator postdilatation. Placed our procedure well his discharge recovery in good condition. Postop diagnosis: 1. Gastroesophageal reflux disease with erosive esophagitis-continue PPI treatment antireflux precautions 2. Esophageal stricture-repeat dilatation on as-needed basis 3. Possible candidal esophagitis use Diflucan for 3 days. Anesthesia: MAC Surgeon / Physician: Emerson Fregoso Estimated blood loss: none Specimens: none sent Condition: stable Disposition: post procedure unit Results - Labs CBC & BMP: 06/13/16 04:11 06/13/16 04:11 Discharge Plan - Discharge Medications No Action Gabapentin Cap/Tab [Neurontin Cap/Tab] 300 mg PO BEDTIME Metoprolol Succinate 50 mg PO QAM Metformin HCl 1,000 mg PO BID Insulin Glargine,Hum.rec.anlog [Lantus SoloStar] 50 units SUBCUT BEDTIME Clopidogrel Bisulfate [Clopidogrel] 75 mg PO QPM Losartan/Hydrochlorothiazide [Losartan-Hctz 100-25 mg Tab] 1 tablet PO QAM - Follow Up or Referral Follow Up: Conner Orantes MD [Physician] - - Forms/Instructions Instructions: Cholecystitis (DC), Laparoscopic Cholecystectomy (DC)
--- NOTE | 2016-06-13 11:29 | Anesthesia ---
Anesthesia Post OP - Post Ansesthetic Evaluation Patient seen in post op: Yes Resp: within normal limits CV: within normal limits Mental: within normal limits Temp: within normal limits [id number]: within normal limits Nausea and Vomiting: within normal limits Pain: within normal limits
--- NOTE | 2016-06-13 11:46 | Event Note ---
Afebrile vital signs stable. Pain improving. Patient seen in recovery room from his EGD. His abdomen is soft. He was noted to have esophagitis and possibly candidiasis with a small stricture. We'll give him clear liquids and see how he does.
[2016-06-13] MEDS: FLUCONAZOLE INJ 100 MG in IV BAG 1 EACH IV SCH (12:43)
--- NOTE | 2016-06-13 13:26 | Hospitalist Progress Note ---
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 Seen eating lunch today. EGD today with gwen and a small stricture. Started on diflucan. FSG elevated, increased Lantus. Exam - Constitutional Vitals: Period Temp Pulse Resp BP Sys/Hyman Pulse Ox Last 24 Hr 97.2 F-97.6 F 79-90 16-22 103-143/77-102 91-96 General appearance: over weight - Head Head exam: Present: normocephalic, atraumatic - Eye Eye exam: Present: EOMI Pupils: Present: PRASAD - ENT ENT exam: Present: normal exam - Neck Neck exam: Present: normal inspection - Respiratory Respiratory exam: Present: clear to auscultation bilaterally. Absent: rhonchi, wheezes - Cardiovascular Cardiovascular exam: Present: regular rate and rhythm - GI/Abdominal GI/Abdominal exam: Present: hypoactive bowel sounds, tenderness. Absent: rebound - Extremities Exam Extremities exam: Present: normal inspection - Back Exam Back exam: Present: normal inspection - Neurological Exam Neurological exam: Present: alert, oriented X3 - Psychiatric Psychiatric exam: Present: normal affect, normal mood - Skin Skin exam: Present: warm, intact Results - Labs CBC & BMP: 06/13/16 04:11 06/13/16 04:11 Specialty Discharge - Follow Up or Referrals Follow up with: Conner Orantes MD [Physician] -
[2016-06-13] MEDS: GABAPENTIN 300 MG CAPSULE PO SCH (20:58)
[2016-06-13] MEDS: INSULIN GLARGINE 100 UNIT/ML SUBCUT SCH (20:58)
[2016-06-14] MEDS: ONDANSETRON 4 MG/2 ML VIAL IV PRN ×2 (02:57→09:38)
[2016-06-14] MEDS: metroNIDAZOLE INJ 500 MG in PREMIX 1 EACH IV SCH ×3 (05:46→22:16)
[2016-06-14] MEDS: LACTATED RINGERS 1,000 ML IV SCH ×2 (06:53→15:01)
[2016-06-14] MEDS: PIPERACILLIN/TAZOBACTAM 3,375 MG in SODIUM CHLORIDE 0.9% 100 ML IV SCH ×3 (06:53→23:13)
[2016-06-14] MEDS: HYDROmorphone 2 MG/1 ML VIAL IV PRN ×4 (07:04→23:10)
[2016-06-14] MEDS: INSULIN LISPRO 100 UNIT/ML SUBCUT SCH ×4 (07:18→22:15)
[2016-06-14] MEDS: PANTOPRAZOLE 40 MG TABLET PO SCH (09:32)
[2016-06-14] MEDS: METOPROLOL SUCCINATE XL 50 MG TABLET PO SCH (09:39)
[2016-06-14] MEDS: LOSARTAN/HCTZ 50-12.5 MG TABLET PO SCH (09:39)
--- NOTE | 2016-06-14 10:00 | Gastrointestinal Progress Note ---
<Kristi Valencia - Last Filed: 06/14/16 09:58> Assessment and Plan (1) Dysphagia Status: Acute Assessment and plan: 06/14-EGD findings noted. Dysphagia improved this morning post dilation. Tolerating diet. Plan an addendum to follow by Dr. Fregoso 06/12-new onset dysphagia with regurgitation/nausea and vomiting following ingestion of solids are liquids. No prior history of problems prior to this admission. Abdominal x-ray with no acute findings. Status post laparoscopic cholecystectomy day 2. Plavix continues to be held. Plan an addendum to follow by Dr. Fregoso. Current Visit: Yes Gastroenterology - PN: Subj Interval history: CC: Dysphagia, nausea Patient is seen awake and alert sitting up in bed. States he is feeling much better today. States he is swallowing better and is having no nausea. Just complaints of some mild abdominal discomfort postsurgical. Tolerating his diet at present time. Abdomen is soft, nontender. ROS: Denies shortness of breath or chest pain Exam (Progress Note) - Constitutional Vitals: Period Temp Pulse Resp BP Sys/Hyman Pulse Ox Last 24 Hr 96.6 F-97.8 F 79-90 16-22 103-143/81-102 90-96 General appearance: normal weight, no acute distress - Head Head exam: Present: normal inspection, normocephalic - Eye Eye exam: Present: other (Lids and conjunctive are unremarkable). Absent: scleral icterus - ENT ENT exam: Present: normal exam, normal oropharynx - Neck Neck exam: Present: normal inspection - Respiratory Respiratory exam: Present: clear to auscultation bilaterally. Absent: rales, rhonchi, wheezes - Cardiovascular Cardiovascular exam: Present: regular rate and rhythm. Absent: diastolic murmur , JVD, systolic murmur - GI/Abdominal GI/Abdominal exam: Present: normal bowel sounds, tenderness, soft. Absent: ascites, distended, mass, organomegaly - Extremities Exam Extremities exam: Present: normal inspection, full ROM - Back Exam Back exam: Present: normal inspection - Neurological Exam Neurological exam: Present: alert, oriented X3 - Psychiatric Psychiatric exam: Present: normal affect, normal mood - Skin Skin exam: Present: normal color, warm, dry Results - Labs CBC & BMP: 06/13/16 04:11 06/13/16 04:11 Lab Results: I have reviewed the past 24 hour labs Specialty Discharge - Follow Up or Referrals Follow up with: Conner Orantes MD [Physician] - <Emerson Fregoso - Last Filed: 06/14/16 16:36> Exam (Progress Note) - Constitutional Vitals: Period Temp Pulse Resp BP Sys/Hyman Pulse Ox Last 24 Hr 96.6 F-98.3 F 75-84 16-18 121-140/81-96 90-96 Results - Labs CBC & BMP: 06/13/16 04:11 06/13/16 04:11
--- NOTE | 2016-06-14 10:15 | Event Note ---
Afebrile vital signs stable. His only complaint is of dizziness and unsteady gait. He says he did not have this before but it is listed on his complaints upon admission. He underwent EGD yesterday. He is tolerated clear liquids with no nausea or vomiting. His abdominal pain is much improved. He has no complaints related to his abdomen. His abdomen is soft protuberant and appropriately tender. Incisions look good. PANKAJ drain with minimal serous output. Will DC his PANKAJ drain. Restart his Plavix. I offered him regular diet but he says he would like to just try full liquids. I asked him to discuss his dizziness with the hospitalist. Once he's tolerating diet he would be ready for discharge from a surgical standpoint.
[2016-06-14] MEDS: FLUCONAZOLE INJ 100 MG in IV BAG 1 EACH IV SCH (12:47)
--- NOTE | 2016-06-14 17:02 | Hospitalist Progress Note ---
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 I asked him about his dizziness. He reports that it occurs whenever he stands up or moves his head really fast. It feels like the world is spinning around him. No nystagmus appreciated. Does sound like orthostasis. Will check orthostatic vitals. Exam - Constitutional Vitals: Period Temp Pulse Resp BP Sys/Hyman Pulse Ox Last 24 Hr 96.6 F-98.3 F 75-84 16-18 121-140/81-96 90-96 General appearance: over weight - Head Head exam: Present: normocephalic, atraumatic - Eye Eye exam: Present: EOMI. Absent: nystagmus Pupils: Present: PRASAD - ENT ENT exam: Present: normal exam - Neck Neck exam: Present: normal inspection - Respiratory Respiratory exam: Present: clear to auscultation bilaterally. Absent: rhonchi, wheezes - Cardiovascular Cardiovascular exam: Present: regular rate and rhythm - GI/Abdominal GI/Abdominal exam: Present: normal bowel sounds, soft. Absent: tenderness, rebound - Extremities Exam Extremities exam: Present: normal inspection - Back Exam Back exam: Present: normal inspection - Neurological Exam Neurological exam: Present: alert, oriented X3 - Psychiatric Psychiatric exam: Present: normal affect, normal mood - Skin Skin exam: Present: warm, intact Results - Labs CBC & BMP: 06/13/16 04:11 06/13/16 04:11 Specialty Discharge - Follow Up or Referrals Follow up with: Conner Orantes MD [Physician] -
[2016-06-14] MEDS: GABAPENTIN 300 MG CAPSULE PO SCH (22:11)
[2016-06-14] MEDS: INSULIN GLARGINE 100 UNIT/ML SUBCUT SCH (22:12)
[2016-06-15] MEDS: metroNIDAZOLE INJ 500 MG in PREMIX 1 EACH IV SCH ×2 (05:55→17:03)
[2016-06-15] MEDS: PIPERACILLIN/TAZOBACTAM 3,375 MG in SODIUM CHLORIDE 0.9% 100 ML IV SCH ×2 (07:07→17:04)
[2016-06-15] MEDS: HYDROmorphone 2 MG/1 ML VIAL IV PRN ×2 (07:09→11:57)
[2016-06-15] MEDS: LACTATED RINGERS 1,000 ML IV SCH ×2 (08:06→17:03)
[2016-06-15] MEDS: INSULIN LISPRO 100 UNIT/ML SUBCUT SCH ×3 (08:09→16:59)
[2016-06-15] MEDS: PANTOPRAZOLE 40 MG TABLET PO SCH (09:09)
[2016-06-15] MEDS: LOSARTAN/HCTZ 50-12.5 MG TABLET PO SCH (09:09)
[2016-06-15] MEDS: METOPROLOL SUCCINATE XL 50 MG TABLET PO SCH (09:10)
--- NOTE | 2016-06-15 12:07 | Hospitalist Progress Note ---
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 Patient reports that he feels better today. Pain is improved. Appetite is still not great. Dizziness is much improved, no longer gets dizzy with standing. Orthostatic vitals were ok. Will check labs, but patient is much better. Exam - Constitutional Vitals: Period Temp Pulse Resp BP Sys/Hyman Pulse Ox Last 24 Hr 96.4 F-97.7 F 70-88 16-20 137-164/64-106 92-97 General appearance: over weight - Head Head exam: Present: normocephalic, atraumatic - Eye Eye exam: Present: EOMI Pupils: Present: PRASAD - ENT ENT exam: Present: normal exam - Neck Neck exam: Present: normal inspection. Absent: tenderness - Respiratory Respiratory exam: Present: clear to auscultation bilaterally. Absent: rhonchi, wheezes - Cardiovascular Cardiovascular exam: Present: regular rate and rhythm - GI/Abdominal GI/Abdominal exam: Present: normal bowel sounds, soft. Absent: tenderness, rebound - Extremities Exam Extremities exam: Present: normal inspection - Back Exam Back exam: Present: normal inspection - Neurological Exam Neurological exam: Present: alert, oriented X3 - Psychiatric Psychiatric exam: Present: normal affect, normal mood - Skin Skin exam: Present: warm, intact Results - Labs CBC & BMP: 06/13/16 04:11 06/13/16 04:11 Specialty Discharge - Follow Up or Referrals Follow up with: Conner Orantes MD [Physician] -
[2016-06-15] MEDS ORDERED: INSULIN GLARGINE 100 UNIT/ML SUBCUT SCH (12:09)
--- NOTE | 2016-06-15 12:36 | Event Note ---
Afebrile vital signs stable. Had bowel movement which was some postprandial diarrhea. His dizziness is improved. He is tolerating diet without any problems. He would like to stay on full liquids for now. He can advance his diet as tolerated. His abdomen is soft and appropriately tender and nondistended. Incisions look good. From my standpoint he can be discharged when okay with the hospitalist is managing his medical problems and dizziness.
[2016-06-15] MEDS: FLUCONAZOLE INJ 100 MG in IV BAG 1 EACH IV SCH (13:01)
[2016-06-15 16:28] VITALS: BP 140/93
== END 2016-06-15 18:15 | disposition home or self-care (01) | DRG 418 ==
LOC: N.ED 09:02 → N.EDINP 09:02 → OBSVTOIN 10:50 → N.3E 11:22
PROVIDERS: ADMIT Surgery; ATTEND Surgery
PROC: LAPCHOL (2016-06-10 10:30)